=== PATIENT | male | born 1985 ===

== ENCOUNTER 2018-07-05 13:14 | Emergency (ER) | payer OTHER ==
[2018-07-05 13:42] VITALS: BMI 39.9
--- NOTE | 2018-07-05 14:15 | C.PDOC ---
History Of Present Illness Mr. Keenan Crabtree is a 32 year old male with no significant past medical history who presents with complaints of URI symptoms since Wednesday night including: Fever, chills, chest congestion and generalized body aches. Additional symptoms include nausea, headache, and itchy eyes. ROS POSITIVES: Fever, chills, chest congestion, dry cough, dizziness, generalized body aches, nausea, headache, and itchy eyes. NEGATIVES: SOB, Chest pain, Palpitations, abdominal pain, vomiting, changes in bowel habits, urinary symptoms. PMHx: Denies PSHx: Denies Allerges: NKDA SocialHx: Denies tobacco, EtoH, or illicit drug use Hos: Denies FamHx: Denies Meds: Denies. Time Seen by Provider: 07/05/18 14:02 Chief Complaint (Nursing): Flu-like Symptoms History Per: Patient Past Medical History Vital Signs: Last Vital Signs Temp 100.1 F H 07/05/18 13:42 Pulse 115 H 07/05/18 13:42 Resp 18 07/05/18 13:42 BP 131/84 07/05/18 13:42 Pulse Ox 96 07/05/18 13:42 - Medical History PMH: Denies: Chronic Kidney Disease Family History: States: Unknown Family Hx - Social History Hx Tobacco Use: No (quit 1 month ago) Hx Alcohol Use: No Hx Substance Use: No - Immunization History Hx Tetanus Toxoid Vaccination: Yes Hx Influenza Vaccination: No Hx Pneumococcal Vaccination: No Review Of Systems Except As Marked, All Systems Reviewed And Found Negative. (As per HPI) Physical Exam - Physical Exam Appears: Non-toxic, No Acute Distress Skin: Normal Color, Warm, Dry Head: Atraumatic, Normacephalic, Tenderness Eye(s): bilateral: Normal Inspection, EOMI Ear(s): Bilateral: Normal Nose: Normal Oral Mucosa: Moist Tongue: Normal Appearing Lips: Normal Appearing Teeth: Normal Dentition Gingiva: Normal Appearing Throat: Normal, No Erythema, No Exudate, No Mass Lymphatic: Adenopathy (Anterior,Cervical,Mild, Non-tender) Cardiovascular: Rhythm Regular, No Edema, No Murmur, No JVD Respiratory: Normal Breath Sounds, No Rales, No Rhonchi, No Stridor, No Wheezing Gastrointestinal/Abdominal: Bowel Sounds, Soft, No Tenderness, No Mass Extremity: No Pedal Edema Neurological/Psych: Oriented x3 ED Course And Treatment O2 Sat by Pulse Oximetry: 96 Medical Decision Making Medical Decision Making: Flu-Like Symptoms Mgmt: Rapid Flu Tylenol for Fever Reassess Ibuprofen 600mg PO ONCE given for Fever Patient is feeling better. Fever has resolved. Patient to use OTC medication for symptoms. He was instructed to drink plenty of fluids and rest. Disposition - Disposition Referrals: Kristine Arteaga MD [Staff Provider] - Disposition: HOME/ ROUTINE Disposition Time: 16:36 Condition: FAIR Additional Instructions: Please follow up with your primary physician within 2-3 days of discharge from the ED You may use OTC (Over the Counter) medications for your symptoms per instructions. If symptoms worsen, please return to the emergency room. Prescriptions: guaiFENesin/Dextromethorphan [guaiFENesin-DM] 10 ml PO Q4H PRN 14 Days #120 ml PRN Reason: Cough Instructions: Viral Upper Respiratory Infection, Adult (DC) Forms: [facility] (Dominican), Work Excuse - POA Present On Arrival: None - Clinical Impression Clinical Impression: Influenza-like illness
[2018-07-05 16:51] VITALS: BP 109/72; PULSE 104; RESP 20; TEMP 102.4; O2SAT 94
== END 2018-07-05 16:55 | disposition home or self-care (01) ==
LOC: C.ER 13:14
DX: J11.1 Influenza due to unidentified influenza virus with other respiratory manifestations (principal)